=== PATIENT | male | born 1965 | race Two or more races ===

== ENCOUNTER 2021-11-03 10:56 | Outpatient (CLI) | payer OTHER | END 2021-11-03 11:37 | disposition home or self-care (01) | LOC: RAD 10:56 | DX: J18.0 Bronchopneumonia, unspecified organism (principal); S22.42XA Multiple fractures of ribs, left side, initial encounter for closed fracture ==

== ENCOUNTER 2024-08-01 07:30 | Outpatient (CLI) | payer OTHER | END 2024-08-01 12:45 | disposition home or self-care (01) | LOC: RAD 07:30 | DX: S62.609A Fracture of unspecified phalanx of unspecified finger, initial encounter for closed fracture (principal) ==